=== PATIENT | male | born 1995 | race Caucasian/White ===

== ENCOUNTER 2021-07-27 20:41 | Emergency (ER) | payer OTHER ==
[2021-07-27 21:02] VITALS: BP 141/80
--- NOTE | 2021-07-27 21:28 | ED Physician Documentation ---
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 He has part of the chipped tooth with him in a glass of cool milk. He has no pain to the site though is sensitive when cool air touches it. No other injuries. He is in the [place] and deploying to [employer] in 5 days. Review of Systems Ten Systems: 10 systems reviewed and negative Throat: reports: Dental pain / toothache PD PAST MEDICAL HISTORY - Present Medications Home Medications: Ambulatory Orders Medication Instructions Recorded Confirmed No Known Home Medications 07/27/21 07/27/21 - Allergies Allergies/Adverse Reactions: Allergies Allergy/AdvReac Type Severity Reaction Status Date / Time No Known Drug Allergies Allergy Verified 07/27/21 21:00 PD ED PE NORMAL - Vitals Vital signs reviewed: Yes - General General: Alert and oriented X 3, No acute distress, Well developed/nourished - HEENT HEENT: Atraumatic, Moist mucous membranes, Pharynx benign, Other (Left front tooth is chipped ~50% involving dentin. No avulsion, no bleeding or swelling, non tender. No visible root exposure. ) - Neck Neck: Supple, no meningeal sign, No adenopathy - Cardiac Cardiac: RRR, No murmur - Respiratory Respiratory: No respiratory distress, Clear bilaterally - Neuro Neuro: Alert and oriented X 3 Eye Opening: Spontaneous Motor: Obeys Commands Verbal: Oriented GCS Score: 15 - Psych Psych: Normal mood, Normal affect Results - Vitals Vitals: Vital Signs - 24 hr 07/27/21 21:00 Temperature 36.3 C L Heart Rate 68 Respiratory 16 Rate Blood Pressure 141/80 H O2 Saturation 98 Oxygen O2 Source Room air PD MEDICAL DECISION MAKING - ED course Complexity details: d/w patient ED course: This is a a healthy 25-year-old male who sustained a fractured left upper front tooth after getting hit by a ball. He has no other injuries. I advised him to keep the chipped tooth in cool solution and he will follow up with urgent dental tomorrow. He will likely need a root canal and crown but there is a small chance that the tooth could be salvaged. He has no signs of infection at this time, no pain does not require any pain medication. I advised him to avoid chewing not area, avoid cool or hot drinks, he may take ibuprofen or Tylenol for pain. If there are signs of infection such as facial swelling, redness, pain, drainage, patient to return to the ER. Departure - Departure Disposition: 01 Home, Self Care Clinical Impression: Chipped tooth Condition: Good Instructions: ED Tooth Pain Follow-Up: Joe Cronin DDS [Provider Admit Priv/Credential] - Comments: Please see your dentist or urgent dental in the next 24 hours if possible. You may try urgent dental in [place] or may try Dr. Joe Cronin in [place]. You may take ibuprofen and tylenol if there is discomfort. Avoid chewing on same side, avoid hot/cold food/drink
== END 2021-07-27 21:30 | disposition home or self-care (01) ==
LOC: ED 20:41
DX: S02.5XXA Fracture of tooth (traumatic), initial encounter for closed fracture (principal); W21.09XA Struck by other hit or thrown ball, initial encounter; Y93.69 Activity, other involving other sports and athletics played as a team or group; Y99.8 Other external cause status
CPT/HCPCS: 99281